=== PATIENT | male | born 1965 | race Caucasian/White ===

== ENCOUNTER 2016-10-31 16:09 | Emergency (ER) | payer BC ==
[2016-10-31 16:42] LABS: Hematocrit 46.4 % (42.0-52.0); Hemoglobin 17.2 gm/dL (13.5-18.0); Mean Cell Volume 93.2 fl (78-100); Mean Corpuscular Hemoglobin 34.5 pg (27-31); Mean Corpuscular Hgb Conc 37.1 g/dl (32-36); Neutrophil % 65.6 % (42-75.0); Platelet Count 148 K/mm3 (150-450); Red Blood Count 4.98 M/mm3 (4.7-6.0); White Blood Count 6.1 K/mm3 (4.0-10.5)
[2016-10-31 16:55] LABS: Albumin * 4.4 gm/dl (3.4-5.0); Anion Gap 15.4 mmol/L (6.8-13.8); BUN/Creatinine Ratio 14.4 (9.0-21.6); Bilirubin, Total 1.5 mg/dL (0.0-1.1); Ca. Corrected For Albumin 9.7 mg/dL (8.4-10.2); Calcium * 10.3 mg/dL (7.9-10.9); Carbon Dioxide 26.4 mmol/L (24-32.6); Potassium 3.8 mmol/L (3.4-4.6); Total Protein 9.1 gm/dL (6.2-8.2)
[2016-10-31] MEDS ORDERED: NORMAL SALINE 1,000 ML IV ONE (17:09)
[2016-10-31] MEDS ORDERED: ONDANSETRON HCL/PF 2 MG/ML VIAL IV ONE (17:09)
[2016-10-31] MEDS ORDERED: ONDANSETRON HCL/PF 2 MG/ML VIAL ONE (17:12)
[2016-10-31] MEDS ORDERED: DIATRIZOATE MEGLU/DIATRIZO SOD 30 ML BTL PO ONE (17:18)
[2016-10-31] MEDS ORDERED: DIATRIZOATE MEGLU/DIATRIZO SOD 30 ML BTL ONE (17:21)
--- NOTE | 2016-10-31 17:21 | ERNOTE ---
Abdominal HPI - Narrative Date of Service: 10/31/16 - General Chief Complaint: Abdominal Pain Time Seen by Provider: 10/31/16 17:00 Source: patient Exam Limitations: no limitations - Immun/Allergies/Home Medications Immunizatons: IMMUNIZATION HX Immunizations Up to Date Yes History of Influenza Vaccine No Hx Pneumococcal Vaccination No Allergies/Adverse Reactions: Allergies No Known Allergies Allergy (Verified 10/31/16 16:17) Home Medications: HOME MEDICATIONS Minocycline HCl [Minocin] 100 mg PO Q12H 10/31/16 [Last Taken Unknown] Omeprazole 40 mg PO DAILY #30 capsule. 10/31/16 [Last Taken Unknown] Sucralfate [Carafate] 1 gm PO QID #120 tab 10/31/16 [Last Taken Unknown] - History of Present Illness Narrative: 51-year-old male presents to the emergency room for left upper quadrant abdominal pain, nausea, vomiting since Saturday. Patient states he's been taking minocycline for rosacea but has had several different stories about what he takes how often he takes it when he takes it. Patient continues to drink alcohol daily. states he is addicted to alcohol and has no plan to stop drinking at this time. Date (Duration): 10/31/16 Timing: constant, getting worse Quality: moderate, cramping Activities at Onset: none Modifying Factors - (Worsens): Present: eating, vomiting Associated Symptoms: Present: nausea, vomiting, loss of appetite Prior Abdominal Problems: Present: none Review of Systems - Narrative Narrative: patient states last ETOH drink was at 1200 today and he was betsy to keep that down, he also states he is unable to keep food down and has been taking his minocycline but not as directed. thinks his abdominal pain is r/t his medication or his ETOH use. - Review of Systems Constitutional: Present: no symptoms reported EYE: Present: no symptoms reported ENT: Present: no symptoms reported Respiratory: Present: no symptoms reported Cardiology: Present: no symptoms reported Gastrointestinal/Abdominal: Present: See HPI, nausea, vomiting, abdominal pain, eating less, drinking less Genitourinary: Present: See HPI Musculoskeletal: Present: no symptoms reported Skin: Present: no symptoms reported Neurological: Present: no symptoms reported Endocrine: Present: no symptoms reported Hematologic/Lymphatic: Present: no symptoms reported Psych: Present: no symptoms reported All Other Systems: All systems neg except as marked - Patient's Past Medical History Patient History - Medical: Other - ETOH abuse Patient History - Cardiac/Respiratory: No pertinent hx Patient History - Cancer: No Hx of Cancer Patient History - Surgical Procedures: No surgical history Patient History - Other: None - Social History Living Situations: home Abuse History: No History of abuse Psych History: No pertinent hx Smoking Status: Never smoker Alcohol Use: heavy Drug Use: none - Immunizations Immunizations Up to Date: Yes Hx Pneumococcal Vaccination: No History of Influenza Vaccine: No Physical Exam - Physical Exam Narrative: patient is tender to his RUQ, he is tachy and mucous membranes appear dry. General Appearance: Present: wd/wn, alert, no apparent distress Eye Exam: Normal inspection: bilateral Ears, Nose, Throat: Present: normal ENT inspection, normal pharynx. Absent: sinus pain/drainage Neck: Present: normal inspection, nontender, full range of motion Respiratory: Present: no respiratory distress, normal breath sounds, no accessory muscle use, chest nontender, lungs clear. Absent: decreased breath sounds Cardiovascular/Chest: Present: no murmur, normal peripheral pulses, tachycardia Gastrointestinal/Abdominal: Present: normal bowel sounds, tenderness Back Exam: Present: normal inspection, normal range of motion, no CVA tenderness , no vertebral tenderness Extremity Exam: Present: normal inspection, non-tender, normal range of motion, no edema Neurological Exam: Present: alert, oriented, normal mood/affect, no motor/ sensory deficits Skin Exam: Present: normal color, warm/dry, skin rash - rosacea Lymphatic Exam: Present: no adenopathy ED Progress - Results and Orders Patient's Lab Results:: I have reviewed the patient's lab results. Results and Orders: elevated liver enzymes - Vital Signs Patient's Vital Signs:: I have reviewed the patient's vital signs. Vital Signs: Vital Signs 10/31/16 10/31/16 16:13 16:47 Temperature 37.4 C Pulse Rate 110 H 112 H Respiratory 16 12 Rate Blood Pressure 154/109 133/104 O2 Sat by Pulse 97 98 Oximetry - CT/Ultrasound CT/Ultrasound Narrative: abd CT showed no acute findings - Progress/Reassessment Chief Complaint: Abdominal Pain Progress:: Improved Departure - Departure Clinical Impression: Gastric inflammation Qualifiers: Gastritis type: alcoholic Chronicity: chronic Gastritis bleeding: without bleeding Qualified Code(s): K29.20 - Alcoholic gastritis without bleeding Disposition: Home Follow Up Needed Condition: Stable Instructions: Peptic Ulcer, [id number] Additional Instructions: Continue previous home medications as directed. Follow-up with your primary care and a gastric doctor within the next 2 days. Continue taking medications as directed. return to the emergency room if symptoms persist or become worse. Referrals: AZUL WALLACE DO [Consulting Physician] - Prescriptions: Omeprazole 40 mg PO DAILY #30 capsule. Sucralfate [Carafate] 1 gm PO QID #120 tab
[2016-10-31 17:30] LABS: Prothrombin Time (Patient) 10.5 Seconds (9.4-11.4)
[2016-10-31 17:33] LABS: INR 1.01 INR (0.90-1.10)
[2016-10-31 18:20] LABS: Urine Bilirubin Negative (NEGATIVE); Urine Blood Negative /ul (NEGATIVE); Urine Ketone 5 mg/dL (NEGATIVE); Urine Nitrite Negative (NEGATIVE); Urine Protein Negative (NEGATIVE); Urine Specific Gravity 1.015 SP.GR. (1.005-1.030); Urine Urobilinogen Normal (NORMAL)
[2016-10-31 18:30] LABS: Urine Appearance Clear; Urine Bacteria 1+; Urine Color Yellow; Urine Hyaline Cast TRACE /LPF; Urine Mucus Many - 3+; Urine RBC None Seen /hpf (0-5); Urine WBC None Seen /hpf (0-5)
[2016-10-31] MEDS ORDERED: MAG HYDROX/ALUMINUM HYD/SIMETH 30 ML UDC PO ONE (19:56)
[2016-10-31] MEDS ORDERED: SUCRALFATE 1 G/10 ML UDC PO ONE (19:56)
[2016-10-31] MEDS ORDERED: LIDOCAINE HCL 20 ML UDC MM ONE (19:56)
[2016-10-31 20:21] VITALS: BP 122/88
== END 2016-10-31 20:33 | disposition home or self-care (01) ==
LOC: ER 16:09
DX: K29.20 Alcoholic gastritis without bleeding (principal)
CPT/HCPCS: 36415; 74177; 80053; 81001; 82150; 83690; 85025; 85610; 96374; 99284; J2405